=== PATIENT | female | born 1945 ===

== ENCOUNTER 2025-06-05 06:00 | Day surgery (SDC) | payer OTHER ==
[2025-06-01 12:02] VITALS: BP 131/66
[~2025-06-05] VITALS: Ht 162.6 cm; Wt 64.0 kg
[~2025-06-05 06:00] MED LIST: ADULT ASPIRIN81 MG; DILTIAZEM; GLIMEPIRIDE1 M1; LOSARTAN; VITAMIN E
[2025-06-05] MEDS ORDERED: POVIDONE-IODINE 118 ML BOTT TOP ONE (06:52)
[2025-06-05] MEDS ORDERED: CHLORHEXIDINE GLUCONATE 120 ML BOTTLE TOP ONE (07:28)
[2025-06-05] MEDS ORDERED: hydrALAZINE HCL 20 MG VIAL ONE (07:28)
[2025-06-05] MEDS ORDERED: KETOROLAC TROMETHAMINE 30 MG VIAL IV ONE (09:45)
[2025-06-05] MEDS ORDERED: ONDANSETRON HCL 2 MG/ML VIAL IV ONE (09:45)
[2025-06-05] MEDS ORDERED: KETOROLAC TROMETHAMINE 30 MG VIAL ONE (10:58)
== END 2025-06-05 13:15 | disposition home or self-care (01) ==
LOC: CIR.AMB 06:00
PROVIDERS: ATTEND Obstetrics & Gynecology
DX: N84.0 Polyp of corpus uteri (principal); N95.0 Postmenopausal bleeding